=== PATIENT | male | born 1940 | race Caucasian/White ===

== ENCOUNTER 2017-03-23 08:08 | Day surgery (SDC) | payer MEDICARE, OTHER ==
--- NOTE | ~2017-03-23 | EGD ---
EGD REPORT [facility] [address] [address] NAME: BALDO MARTIN : [birth year] STATUS : REG [facility] PAT#: [id number] AGE: 76 ADM/REG DATE : 03/23/17 MR#: [id number] REPORT SERV DATE: 03/23/17 DICTATED BY: DEANNE BARAJAS DATE: 03/23/17 REPORT STATUS : Draft TRANSCRIBED BY: [facility] DATE: 03/23/17 Endoscopy Center Patient Name: Baldo Martin Date of : 1940 Attending MD: DEANNE BARAJAS MD Procedure Date No Time: 03/23/2017 Procedure: Colonoscopy Indications: Personal history of colonic polyps, S/P sigmoid colectomy for diverticulitis Referring MD: FIORELLA CLARK Medicines: Propofol per Anesthesia Complications: No immediate complications. Estimated blood loss: None. Procedure: Pre-Anesthesia Assessment: - After reviewing the risks and benefits, the patient was deemed in satisfactory condition to undergo the procedure. - Prior to the procedure, a History and Physical was performed, and patient medications and allergies were reviewed. The patient's tolerance of previous anesthesia was also reviewed. The risks and benefits of the procedure and the sedation options and risks were discussed with the patient. All questions were answered, and informed consent was obtained. Prior Anticoagulants: The patient has taken no previous anticoagulant or antiplatelet agents. ASA Grade Assessment: III - A patient with severe systemic disease. After reviewing the risks and benefits, the patient was deemed in satisfactory condition to undergo the procedure. After I obtained informed consent, the scope was passed under direct vision. Throughout the procedure, the patient's blood pressure, pulse, and oxygen saturations were monitored continuously. The CF [id number] was introduced through the anus and advanced to the cecum, identified by appendiceal orifice and ileocecal valve. The colonoscopy was performed without difficulty. The ileocecal valve and appendiceal orifice were photographed. The patient tolerated the procedure well. The quality of the bowel preparation was adequate to identify polyps 6 mm and larger in size. The bowel preparation used was polyethylene glycol (PEG). Scope withdrawal time was greater than 6 minutes. Findings: The perianal and digital rectal examinations were normal. Pertinent negatives include normal sphincter tone. EGD REPORT [address] [address] NAME: BALDO MARTIN : [birth year] STATUS : REG [facility] PAT#: [id number] AGE: 76 ADM/REG DATE : 03/23/17 MR#: [id number] REPORT SERV DATE: 03/23/17 DICTATED BY: DEANNE BARAJAS DATE: 03/23/17 REPORT STATUS : Draft TRANSCRIBED BY: [facility] [facility] DATE: 03/23/17 A few large-mouthed diverticula were found in the entire colon. There was evidence of a prior end-to-end colo-colonic anastomosis in the distal sigmoid colon @ about 16 cm. This was patent. This was characterized by healthy appearing mucosa. This was traversed. The exam was otherwise without abnormality. Impression: - Mild diverticulosis in the entire examined colon. - Patent end-to-end colo-colonic anastomosis. - The examination was otherwise normal. - Chronic constipation. Recommendation: - Discharge patient to home (ambulatory). - Return to previous diet. - Continue present medications including glycolax daily for constipation. - No further routine surveillance colonoscopy due to advanced age. - Return to GI clinic PRN. - Patient has a contact number available for emergencies. The signs and symptoms of potential delayed complications were discussed with the patient. Return to normal activities tomorrow. Written discharge instructions were provided to the patient. Procedure Code(s): --- Professional --- 77975, Colonoscopy, flexible, proximal to splenic flexure; diagnostic, with or without collection of specimen(s) by brushing or washing, with or without colon decompression (separate procedure) Diagnosis Code(s): --- Professional --- K57.30, Diverticulosis of large intestine without perforation or abscess without bleeding Z98.0, Intestinal bypass and anastomosis status Z86.010, Personal history of colonic polyps CPT copyright 2013 [employer]. All rights reserved. The codes documented in this report are preliminary and upon data coder operator review may be revised to meet current compliance requirements. DEANNE BARAJAS MD 03/23/2017 11:25 AM This report has been signed electronically. Number of Addenda: 0 EGD REPORT [facility] [address] [address] NAME: BALDO MARTIN : [birth year] STATUS : REG [facility] PAT#: [id number] AGE: 76 ADM/REG DATE : 03/23/17 MR#: [id number] REPORT SERV DATE: 03/23/17 DICTATED BY: DEANNE BARAJAS DATE: 03/23/17 REPORT STATUS : Draft TRANSCRIBED BY: [facility] DATE: 03/23/17 Note Initiated On: 03/23/2017 10:34 AM Scope Withdrawal Time 0 hours 6 minutes 17 seconds [address] [id number]
--- NOTE | ~2017-03-23 | EGD ---
EGD REPORT [facility] [address] [address] NAME: BALOD MARTIN : 38 STATUS : REG [facility] PAT#: [id number] AGE: 76 ADM/REG DATE : 03/23/17 MR#: [id number] REPORT SERV DATE: 03/23/17 DICTATED BY: DEANNE BARAJAS DATE: 03/23/17 REPORT STATUS : Draft TRANSCRIBED BY: [facility] DATE: 03/23/17 Endoscopy Center Patient Name: Baldo Martin Date of : 1940 Attending MD: DEANNE BARAJAS MD Procedure Date No Time: 03/23/2017 Procedure: Upper GI endoscopy Indications: Dysphagia, Heartburn, Melena with dark stools on Pepto Bismol Referring MD: FIORELLA CLARK Medicines: Propofol per Anesthesia Complications: No immediate complications. Estimated blood loss: None. Procedure: Pre-Anesthesia Assessment: - After reviewing the risks and benefits, the patient was deemed in satisfactory condition to undergo the procedure. - Prior to the procedure, a History and Physical was performed, and patient medications and allergies were reviewed. The patient's tolerance of previous anesthesia was also reviewed. The risks and benefits of the procedure and the sedation options and risks were discussed with the patient. All questions were answered, and informed consent was obtained. Prior Anticoagulants: The patient has taken no previous anticoagulant or antiplatelet agents. ASA Grade Assessment: III - A patient with severe systemic disease. After reviewing the risks and benefits, the patient was deemed in satisfactory condition to undergo the procedure. After obtaining informed consent, the endoscope was passed under direct vision. Throughout the procedure, the patient's blood pressure, pulse, and oxygen saturations were monitored continuously. The GIF [id number] was introduced through the mouth, and advanced to the third part of duodenum. The upper GI endoscopy was accomplished without difficulty. The patient tolerated the procedure well. Findings: Savary-Tejada Grade II (multiple lesions and folds, noncircumferential, with or without confluence) esophagitis with no bleeding was found. A benign-appearing, intrinsic mild (non-circumferential scarring) stenosis was found and was traversed. A guidewire was placed and the scope was withdrawn. Dilation was performed with a Savary dilator with no resistance at 48 Fr. Estimated blood loss: none. Patchy moderate inflammation characterized by erosions and erythema was EGD REPORT [address] [address] NAME: BALDO MARTIN : [birth year] STATUS : REG [facility]#: [id number] AGE: 76 ADM/REG DATE : 03/23/17 MR#: [id number] REPORT SERV DATE: 03/23/17 DICTATED BY: DEANNE BARAJAS DATE: 03/23/17 REPORT STATUS : Draft TRANSCRIBED BY: [employer] DATE: 03/23/17 found in the gastric antrum. Biopsies were taken with a cold forceps for histology. Estimated blood loss: none. The gastroesophageal junction (on retroflexion) was normal. The examined duodenum was normal. Impression: - Savary-Tejada Grade II reflux esophagitis. - Benign-appearing esophageal stricture. Dilated. - Erosive gastritis. Biopsied. - Normal gastroesophageal junction. - Normal examined duodenum. Recommendation: - Discharge patient to home (ambulatory). - Resume previous diet. - Discontinue Mobic (meloxicam) and other NSAID medications. - Continue Protonix (pantoprazole) 40 mg each morning. - Begin Pepcid AC 10 mg 2 by mouth at bedtime each evening. - Perform a colonoscopy today. - Patient has a contact number available for emergencies. The signs and symptoms of potential delayed complications were discussed with the patient. Return to normal activities tomorrow. Written discharge instructions were provided to the patient. Procedure Code(s): --- Professional --- 91769, Esophagogastroduodenoscopy, flexible, transoral; with insertion of guide wire followed by passage of dilator(s) through esophagus over guide wire 61033, Esophagogastroduodenoscopy, flexible, transoral; with biopsy, single or multiple Diagnosis Code(s): --- Professional --- K21.0, Gastro-esophageal reflux disease with esophagitis K22.2, Esophageal obstruction K29.60, Other gastritis without bleeding R13.10, Dysphagia, unspecified R12, Heartburn K92.1, Melena CPT copyright 2013 [employer]. All rights reserved. The codes documented in this report are preliminary and upon air traffic instructor review may be revised to meet current compliance requirements. EGD REPORT [facility] [address] [place] [address] NAME: BALDO MARTIN : [birth year] STATUS : REG [facility]#: [id number] AGE: 76 ADM/REG DATE : 03/23/17 MR#: [id number] REPORT SERV DATE: 03/23/17 DICTATED BY: DEANNE BARAJAS DATE: 03/23/17 REPORT STATUS : Draft TRANSCRIBED BY: [employer] DATE: 03/23/17 DEANNE BARAJAS MD 03/23/2017 11:05 AM This report has been signed electronically. Number of Addenda: 0 Note Initiated On: 03/23/2017 10:47 AM Scope Withdrawal Time 0 hours 0 minutes 0 seconds [address] [facility] [place] [address]
[~2017-03-23 08:08] MED LIST: ASAB PO; DIOVAN HC2 PO; LANTUSCART SC; MOBIC15 MG PO; NOVOPEN SC; PRAVACHOL80 MG PO; PROTONIX PO; TOPXL50 PO; TRICOR145 PO
== END 2017-03-23 23:59 | disposition home or self-care (01) ==
LOC: DMU 08:08
PROVIDERS: Internal Medicine Gastroenterology
PROC: 0D758ZZ Dilation of Esophagus, Via Natural or Artificial Opening Endoscopic (ICD-10-PCS; principal; 2017-03-23 10:00)
PROC: 0DJD8ZZ Inspection of Lower Intestinal Tract, Via Natural or Artificial Opening Endoscopic (ICD-10-PCS; 2017-03-23 10:00)
DX: K57.30 Diverticulosis of large intestine without perforation or abscess without bleeding (principal); K22.2 Esophageal obstruction; K21.0 Gastro-esophageal reflux disease with esophagitis; I25.10 Atherosclerotic heart disease of native coronary artery without angina pectoris; E11.9 Type 2 diabetes mellitus without complications; E78.00 Pure hypercholesterolemia, unspecified; M19.90 Unspecified osteoarthritis, unspecified site; Z86.010 Personal history of colon polyps; Z98.0 Intestinal bypass and anastomosis status; Z88.5 Allergy status to narcotic agent; Z95.5 Presence of coronary angioplasty implant and graft
CPT/HCPCS: 82962; 88305